=== PATIENT | male | born 1990 | race American Indian/Alaskan Native ===

== ENCOUNTER 2017-03-25 20:15 | Emergency (ER) | payer SELFPAY ==
[2017-03-25 21:09] VITALS: BP 137/77
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
== END 2017-03-26 | disposition home or self-care (01) ==
LOC: ED 20:15
DX: T62.0X1A Toxic effect of ingested mushrooms, accidental (unintentional), initial encounter (principal); Y92.89 Other specified places as the place of occurrence of the external cause; F11.10 Opioid abuse, uncomplicated
CPT/HCPCS: 99283